=== PATIENT | female | born 1950 | race Caucasian/White ===

== ENCOUNTER 2016-10-09 02:35 | Emergency (ER) | payer MEDICARE, BC ==
[2016-10-09] MEDS ORDERED: fentaNYL 100 MCG/2 ML SDV IVPUSH ONE (03:14)
[2016-10-09] MEDS ORDERED: Sodium Chloride 0.9% 10 ML Syringe FLUSH PRN (03:14)
[2016-10-09] MEDS ORDERED: Sodium Chloride 0.9% 1,000 ML IV SCH (03:15)
[2016-10-09] MEDS ORDERED: fentaNYL 100 MCG/2 ML SDV ONE (03:19)
--- NOTE | 2016-10-09 03:21 | EDM.PDOC ---
ED HPI GENERAL MEDICAL PROBLEM - General Chief Complaint: Gastrointestinal Problem Stated Complaint: ABD BURNING Time Seen by Provider: 10/09/16 03:03 Source of Information: Reports: Patient, RN Notes Reviewed History Limitations: Reports: No Limitations - History of Present Illness INITIAL COMMENTS - FREE TEXT/NARRATIVE: here with her Chief complaint Upper abdominal pain History of present illness 66-year-old female, with upper abdominal pain waxing and waning since onset 5 days ago, . Getting worse tonight and she could no longer sleep last night or the night before. Some nausea but no retching or vomiting. Decreased appetite but she did eat small amounts during the day. Some diarrhea but none in the last 24 hours but she did take some Imodium. No change in pain with breathing position or with the drive here. She has had similar pains before when she misses meals. This is far more intense. No bad foods. 10 pound weight loss in the last couple of months, she's always been slim, quit smoking in number of years ago. History of three-vessel coronary artery bypass graft . No burping no nausea currently. History of appendectomy No relief at home with Pepto-Bismol or Mylanta Upper Abdominal Pain Score (Numeric/FACES): 9 - Related Data Allergies Allergy/AdvReac Type Severity Reaction Status Date / Time No Known Allergies Allergy Verified 10/09/16 02:48 Home Meds: Home Meds Aspirin [Low Dose Aspirin EC] 81 mg PO DAILY 10/12/14 [History] Carvedilol [Coreg] 25 mg PO BID 10/12/14 [History] Pramipexole [Mirapex] 0.125 mg PO BEDTIME PRN 10/12/14 [History] Ramipril [Altace] 10 mg PO DAILY 10/12/14 [History] Simvastatin [Zocor] 40 mg PO BEDTIME 10/12/14 [History] Spironolactone [Aldactone] 12.5 mg PO DAILY 10/12/14 [History] Sertraline [Zoloft] 50 mg PO DAILY 10/09/16 [History] Zolpidem Tartrate 10 mg PO BEDTIME PRN 10/09/16 [History] Zolpidem [Ambien] 5 mg PO BEDTIME PRN #5 tab 10/09/16 [Rx] Past Medical History Cardiovascular History: Reports: Afib, Angina, CAD, Heart Failure, High Cholesterol, Hypertension, Pacemaker Respiratory History: Reports: Asthma, COPD Gastrointestinal History: Reports: None [employer]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: Musculoskeletal History: Reports: None Neurological History: Reports: None Psychiatric History: Reports: Depression Endocrine/Metabolic History: Reports: None Hematologic History: Reports: None Immunologic History: Reports: None Oncologic (Cancer) History: Reports: None Dermatologic History: Reports: None Other Dermatologic History: hives - Past Surgical History Cardiovascular Surgical History: Reports: Coronary Artery Bypass GI Surgical History: Reports: None Female Surgical History: Reports: Tubal Ligation Neurological Surgical History: Reports: None Musculoskeletal Surgical History: Reports: None Social & Family History - Tobacco Use Smoking Status *Q: Former Smoker Used Tobacco, but Quit: Yes Month Tobacco Last Used: 2004 - Caffeine Use Caffeine Use: Reports: None - Recreational Drug Use Recreational Drug Use: No ED ROS GENERAL - Review of Systems Review Of Systems: See Below Constitutional: Reports: Decreased Appetite, Weight Loss. Denies: Fever HEENT: Reports: No Symptoms Respiratory: Reports: No Symptoms Cardiovascular: Reports: No Symptoms Endocrine: Reports: No Symptoms GI/Abdominal: Reports: Abdominal Pain (epigastric), Diarrhea, Nausea (briefly). Denies: Vomiting : Reports: No Symptoms Musculoskeletal: Reports: No Symptoms Skin: Reports: No Symptoms Neurological: Reports: No Symptoms Psychiatric: Reports: No Symptoms Hematologic/Lymphatic: Reports: No Symptoms Immunologic: Reports: No Symptoms ED EXAM, GI/ABD - Physical Exam Exam: See Below Exam Limited By: No Limitations General Appearance: Alert, Mild Distress, Other (she is very slim, vital signs are normal, no difficulty speaking) Eyes: Bilateral: Normal Appearance Ears: Normal External Exam Throat/Mouth: Normal Inspection, Normal Lips, Normal Voice Head: Atraumatic, Normocephalic Neck: Normal Inspection, Non-Tender Respiratory/Chest: No Respiratory Distress, Lungs Clear, Normal Breath Sounds Cardiovascular: Normal Peripheral Pulses, Regular Rate, Rhythm GI/Abdominal Exam: Normal Bowel Sounds, Soft, No Organomegaly, No Distention, Tender (epigastric area without guarding) Back Exam: Normal Inspection Extremities: Normal Inspection, Non-Tender Neurological: Alert, Oriented, No Motor/Sensory Deficits Psychiatric: Normal Affect, Normal Mood Skin Exam: Warm, Dry, Intact, Normal Color, No Rash Lymphatic: No Adenopathy Course - Vital Signs Last Recorded V/S: Last Vital Signs Temp 36.0 C 10/09/16 04:08 Pulse 65 10/09/16 04:08 Resp 16 10/09/16 04:08 BP 107/55 L 10/09/16 04:08 Pulse Ox 96 10/09/16 04:08 - Orders/Labs/Meds Orders: Active Orders 24 hr Category Date Time Status Peripheral IV Care [RC] . DIRECTED Care 10/09/16 03:14 Active Chest 1V Frontal [CR] Stat Exams 10/09/16 03:15 Taken Sodium Chloride 0.9% [Normal Saline] 1,000 ml Med 10/09/16 03:15 Active IV ASDIRECTED Sodium Chloride 0.9% [Saline Flush] Med 10/09/16 03:14 Active 10 ml FLUSH ASDIRECTED PRN Peripheral IV Insertion Adult [OM.PC] Routine Oth 10/09/16 03:13 Ordered Medication Orders Sodium Chloride (Normal Saline) 1,000 mls @ 250 mls/hr IV ASDIRECTED WILFRIDO Last Admin: 10/09/16 03:27 Dose: 250 mls/hr Sodium Chloride (Saline Flush) 10 ml FLUSH ASDIRECTED PRN PRN Reason: Keep Vein Open Last Admin: 10/09/16 03:28 Dose: 10 ml Labs: Laboratory Tests 10/09/16 10/09/16 10/09/16 Range/Units 03:20 03:20 03:20 WBC 8.2 (4.5-11.0) K/uL RBC 4.19 (3.30-5.50) M/uL Hgb 12.8 (12.0-15.0) g/dL Hct 36.7 (36.0-48.0) % MCV 88 (80-98) fL MCH 31 (27-31) pg MCHC 35 (32-36) % Plt Count 250 (150-400) K/uL Sodium 139 L (140-148) mmol/L Potassium 4.3 (3.6-5.2) mmol/L Chloride 105 (100-108) mmol/L Carbon Dioxide 25 (21-32) mmol/L Anion Gap 13.3 (5.0-14.0) mmol/L BUN 34 H (7-18) mg/dL Creatinine 1.6 H (0.6-1.0) mg/dL Est Cr Clr Drug Dosing 18.56 mL/min Estimated GFR (MDRD) 32 L (>60) Glucose 106 (74-106) mg/dL Lactic Acid 0.9 (0.4-2.0) mmol/L Calcium 9.1 (8.5-10.1) mg/dL Total Bilirubin 0.5 (0.2-1.0) mg/dL AST 17 (15-37) U/L ALT 17 (12-78) U/L Alkaline Phosphatase 58 (46-116) U/L Troponin I (0.000-0.056) ng/mL Total Protein 7.9 (6.4-8.2) g/dL Albumin 4.2 (3.4-5.0) g/dL Globulin 3.7 H (2.3-3.5) g/dL Albumin/Globulin Ratio 1.1 L (1.2-2.2) Lipase 435 H (73-393) U/L 10/09/16 Range/Units 03:20 WBC (4.5-11.0) K/uL RBC (3.30-5.50) M/uL Hgb (12.0-15.0) g/dL Hct (36.0-48.0) % MCV (80-98) fL MCH (27-31) pg MCHC (32-36) % Plt Count (150-400) K/uL Sodium (140-148) mmol/L Potassium (3.6-5.2) mmol/L Chloride (100-108) mmol/L Carbon Dioxide (21-32) mmol/L Anion Gap (5.0-14.0) mmol/L BUN (7-18) mg/dL Creatinine (0.6-1.0) mg/dL Est Cr Clr Drug Dosing mL/min Estimated GFR (MDRD) (>60) Glucose (74-106) mg/dL Lactic Acid (0.4-2.0) mmol/L Calcium (8.5-10.1) mg/dL Total Bilirubin (0.2-1.0) mg/dL AST (15-37) U/L ALT (12-78) U/L Alkaline Phosphatase (46-116) U/L Troponin I < 0.017 (0.000-0.056) ng/mL Total Protein (6.4-8.2) g/dL Albumin (3.4-5.0) g/dL Globulin (2.3-3.5) g/dL Albumin/Globulin Ratio (1.2-2.2) Lipase (73-393) U/L Meds: Medications Generic Name Dose Route Start Last Admin Trade Name Freq PRN Reason Stop Dose Admin Sodium Chloride 1,000 mls @ 250 mls/hr 10/09/16 03:15 10/09/16 03:27 Normal Saline IV 250 mls/hr ASDIRECTED WILFRIDO Administration Sodium Chloride 10 ml 10/09/16 03:14 10/09/16 03:28 Saline Flush FLUSH 10 ml ASDIRECTED PRN Administration Keep Vein Open Discontinued Medications Generic Name Dose Route Start Last Admin Trade Name Freq PRN Reason Stop Dose Admin Fentanyl 50 mcg 10/09/16 03:14 10/09/16 03:28 Sublimaze IVPUSH 10/09/16 03:15 50 mcg ONETIME ONE Administration Fentanyl Confirm 10/09/16 03:19 10/09/16 03:30 Sublimaze Administered 10/09/16 03:20 Not Given Dose 100 mcg .ROUTE .STK-MED ONE - Re-Assessments/Exams Free Text/Narrative Re-Assessment/Exam: 10/09/16 03:20 66-year-old female with over 4 days of epigastric upper abdominal pain. Differential diagnosis includes biliary colic, cholecystitis, dyspepsia, peptic ulcer, ischemic heart disease, colitis among others. Intravenoussaline, fentanyl 50 g IV for pain 10/09/16 04:19 Much improved after the above treatment Lab tests normal except for mild elevation of creatinine and lipase, insufficiently elevated to make a diagnosis of pancreatitis. Differential diagnosis would include biliary colic She has a follow-up appointment with her provider within one week Return to emergency if symptoms worsening Departure - Departure Time of Disposition: 04:20 Disposition: Home, Self-Care 01 Condition: Good Clinical Impression: Epigastric abdominal pain - Discharge Information Prescriptions: Zolpidem [Ambien] 5 mg PO BEDTIME PRN #5 tab PRN Reason: Sleep Instructions: Abdominal Pain, Adult, [id number] Referrals: PCP,None [Primary Care Provider] - Forms: ED Department Discharge Additional Instructions: there is no sign of heart disease tonight The abdominal pain may come from pancreas or possibly gallbladder. When he see a physician talk about whether to do an ultrasound. Return to emergency if severe pain, vomiting, jaundice or other new symptoms - My Orders Last 24 Hours: My Active Orders 10/09/16 03:13 Peripheral IV Insertion Adult [OM.PC] Routine 10/09/16 03:14 Peripheral IV Care [RC] . DIRECTED Sodium Chloride 0.9% [Saline Flush] 10 ml FLUSH ASDIRECTED PRN 10/09/16 03:15 Chest 1V Frontal [CR] Stat Sodium Chloride 0.9% [Normal Saline] 1,000 ml IV ASDIRECTED - Assessment/Plan Last 24 Hours: My Active Orders 10/09/16 03:13 Peripheral IV Insertion Adult [OM.PC] Routine 10/09/16 03:14 Peripheral IV Care [RC] . DIRECTED Sodium Chloride 0.9% [Saline Flush] 10 ml FLUSH ASDIRECTED PRN 10/09/16 03:15 Chest 1V Frontal [CR] Stat Sodium Chloride 0.9% [Normal Saline] 1,000 ml IV ASDIRECTED
[2016-10-09 04:09] VITALS: BP 107/55
--- NOTE | 2016-10-09 09:30 | CR ---
Chest 1V Frontal HISTORY: epigastric pain FINDINGS: Portable chest, 0331 hours. Lungs are hyperinflated with flattening of the diaphragm consistent with COPD. No acute infiltrate i s identified. Heart size is within normal limits. No hilar or mediastinal abnormality is seen. Old m edian sternotomy changes and multiple mediastinal surgical clips suggests prior CABG. There is no va scular redistribution or pleural fluid. Mild linear scarring is noted left lung base. Bony structure s are osteopenic. There are degenerative changes both shoulders. Atherosclerotic aorta is noted. IMPRESSION: Prominent COPD. Probable mild linear scarring left lung base. Old CABG changes. Generali zed osteopenia. Degenerative changes both shoulders. No other acute chest abnormality is identified.
== END 2016-10-09 04:32 | disposition home or self-care (01) ==
LOC: JP.ED 02:35
DX: R10.13 Epigastric pain (principal); I11.0 Hypertensive heart disease with heart failure; I50.9 Heart failure, unspecified; E78.00 Pure hypercholesterolemia, unspecified; I48.91 Unspecified atrial fibrillation; I20.9 Angina pectoris, unspecified; I25.10 Atherosclerotic heart disease of native coronary artery without angina pectoris; J45.909 Unspecified asthma, uncomplicated; J44.9 Chronic obstructive pulmonary disease, unspecified; F32.9 Major depressive disorder, single episode, unspecified; Z95.1 Presence of aortocoronary bypass graft; Z98.51 Tubal ligation status; Z90.49 Acquired absence of other specified parts of digestive tract; Z87.891 Personal history of nicotine dependence; Z79.82 Long term (current) use of aspirin; Z79.899 Other long term (current) drug therapy
CPT/HCPCS: 36415; 71010; 80053; 83605; 83690; 84484; 85027; 96361; 96374; 99284; J3010; J7040; J7050